=== PATIENT | male | born 1970 | race Caucasian/White ===

== ENCOUNTER 2018-09-25 17:46 | Emergency (ER) | payer MEDICARE, MEDICAID ==
[~2018-09-25] VITALS: Ht 180.3 cm; Wt 77.6 kg
[2018-09-25 18:28] LABS: BASOPHILS # (AUTO) 0.1 X10'3 (0-0.2); BASOPHILS % (AUTO) 1.6 % (0-1); EOSINOPHILS # (AUTO) 0.1 X10'3 (0-0.9); EOSINOPHILS % (AUTO) 1.3 % (0-6); HEMATOCRIT 43.2 % (42.0-52.0); HEMOGLOBIN 14.1 g/dl (14.0-17.9); LYMPHOCYTES # (AUTO) 1.1 X10'3 (1.1-4.8); MEAN CORPUSCULAR HEMOGLOBIN 29.4 PG (27.0-31.0); MEAN CORPUSCULAR HGB CONC 32.7 % (33.0-36.5); MEAN CORPUSCULAR VOLUME 89.7 FL (78-98); MEAN PLATELET VOLUME 7.5 FL (7.4-10.4); MONOCYTES # (AUTO) 0.7 X10'3 (0-0.9); NEUTROPHILS # (AUTO) 6.6 X10'3 (1.8-7.7); NEUTROPHILS % (AUTO) 76.1 % (42-75); PLATELET COUNT 328 X10'3 (140-440); RED BLOOD COUNT 4.82 X10'6 (4.70-6.10); WHITE BLOOD COUNT 8.6 X10'3 (4.5-11.0)
[2018-09-25 18:32] LABS: CLARITY,URINE CLEAR (Clear); COLOR,URINE YELLOW (Yellow); GLUCOSE, URINE NEGATIVE (Neg); KETONES,URINE NEGATIVE (Neg); LEUKOCYTE ESTERASE ,URINE NEGATIVE (Neg); NITRITES, URINE NEGATIVE (Neg); OCCULT BLOOD,URINE NEGATIVE (Neg); PROTEIN,URINE NEGATIVE (Neg); UROBILINOGEN,URINE 0.2 E.U/dL (0.2-1.0)
[2018-09-25 18:35] LABS: UA COLLECTION TYPE CLN CATCH MIDSTREAM
[2018-09-25 18:36] LABS: INR 0.9 INR; PROTHROMBIN TIME 9.4 SECONDS (9.0-12.0)
[2018-09-25 18:37] LABS: ALANINE AMINOTRANSFERASE 29 U/L (12-78); ALBUMIN 3.4 G/DL (3.4-5.0); ALBUMIN/GLOBULIN RATIO 0.9 (1.1-1.5); ALKALINE PHOSPHATASE 65 IU/L (46-116); ANION GAP 6 (8-16); ASPARTATE AMINO TRANSFERASE 17 U/L (10-37); BILIRUBIN,TOTAL 0.3 MG/DL (0.1-1.0); BLOOD UREA NITROGEN 14 MG/DL (7-18); BUN/CREATININE RATIO 14.1 (5.4-32.0); CHLORIDE 101 MMOL/L (99-107); CREATININE 0.99 MG/DL (0.60-1.10); GLUCOSE 94 MG/DL (70-104); LIPASE 90 U/L (73-393); POTASSIUM 4.2 MMOL/L (3.5-5.1); SODIUM 138 MMOL/L (135-145); TOTAL CARBON DIOXIDE 31.2 MMOL/L (24-32); TOTAL PROTEIN 7.3 G/DL (6.4-8.2); eGFR 81 ML/MIN
--- NOTE | 2018-09-25 19:12 | NUR ---
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 Pt began having blood in his stool 3 weeks ago and immediately began taking a predinisone taper perscription that had been perscribed by his PCP (in [facility]) 1 yr ago just prior to him moving to the [facility]. Pt reports only worsening symptoms. Pt has not yet established with a PCP in this area. He also reports a VENTURA increasing over the past few days and haivng pain to his right groin and inner thigh. Pt's and daughter at bedside. Pt awaiting ER MD.
[2018-09-25 19:16] VITALS: BP 119/75
[2018-09-25] MEDS ORDERED: METR-211 PO (20:31)
[2018-09-25] MEDS ORDERED: CIPR-230 PO (20:31)
[2018-09-25] MEDS ORDERED: PRED20TA PO (20:31)
== END 2018-09-25 20:40 | disposition home or self-care (01) ==
LOC: ER 17:47
DX: K50.90 Crohn's disease, unspecified, without complications (principal); Z88.5 Allergy status to narcotic agent; Z88.8 Allergy status to other drugs, medicaments and biological substances; Z79.2 Long term (current) use of antibiotics; Z79.899 Other long term (current) drug therapy
CPT/HCPCS: 36415; 80053; 81003; 83690; 85025; 85610; 99283

== ENCOUNTER 2019-01-09 10:31 | Inpatient (IN) | payer MEDICARE, MEDICAID ==
[~2019-01-09] VITALS: Ht 180.3 cm; Wt 75.0 kg
--- NOTE | 2019-01-09 13:58 | NUR ---
DR KING IN ROOM FOR HISTORY.
[2019-01-09 14:04] LABS: BASOPHILS # (AUTO) 0.1 X10'3 (0-0.2); BASOPHILS % (AUTO) 0.7 % (0-1); EOSINOPHILS # (AUTO) 0.2 X10'3 (0-0.9); HEMATOCRIT 47.8 % (42.0-52.0); LYMPHOCYTES # (AUTO) 2.6 X10'3 (1.1-4.8); LYMPHOCYTES % (AUTO) 21.5 % (21-51); MEAN CORPUSCULAR HEMOGLOBIN 29.3 PG (27.0-31.0); MEAN CORPUSCULAR HGB CONC 33.5 g/dL (33.0-36.5); MEAN CORPUSCULAR VOLUME 87.4 FL (78-98); MEAN PLATELET VOLUME 7.8 FL (7.4-10.4); MONOCYTES # (AUTO) 1.1 X10'3 (0-0.9); MONOCYTES % (AUTO) 9.4 % (2-12); NEUTROPHILS % (AUTO) 66.4 % (42-75); PLATELET COUNT 351 X10'3 (140-440); RED BLOOD COUNT 5.47 X10'6 (4.70-6.10); RED CELL DISTRIBUTION WIDTH 13.7 % (11.5-14.5); WHITE BLOOD COUNT 12.1 X10'3 (4.5-11.0)
[2019-01-09 14:06] LABS: CLARITY,URINE CLEAR (Clear); COLOR,URINE YELLOW (Yellow); GLUCOSE, URINE NEGATIVE (Neg); KETONES,URINE 15 mg/dl (Neg); LEUKOCYTE ESTERASE ,URINE NEGATIVE (Neg); NITRITES, URINE NEGATIVE (Neg); OCCULT BLOOD,URINE TRACE-INTACT (Neg); PROTEIN,URINE NEGATIVE (Neg); UA COLLECTION TYPE CLN CATCH MIDSTREAM; UROBILINOGEN,URINE 0.2 E.U/dL (0.2-1.0)
[2019-01-09 14:13] LABS: MUCUS STRANDS FEW /LPF (Neg); SQUAMOUS EPITHELIAL CELL,UR NONE SEEN /LPF (FEW)
[2019-01-09 14:14] LABS: ALANINE AMINOTRANSFERASE 15 U/L (12-78); ALBUMIN 4.2 G/DL (3.4-5.0); ALBUMIN/GLOBULIN RATIO 0.9 (1.1-1.5); ALKALINE PHOSPHATASE 67 IU/L (46-116); ANION GAP 7 (8-16); ASPARTATE AMINO TRANSFERASE 14 U/L (10-37); BILIRUBIN,TOTAL 0.4 MG/DL (0.1-1.0); BLOOD UREA NITROGEN 12 MG/DL (7-18); BUN/CREATININE RATIO 14.3 (5.4-32.0); CALCIUM 9.6 MG/DL (8.5-10.1); CHLORIDE 102 MMOL/L (99-107); CREATININE 0.84 MG/DL (0.60-1.10); GLUCOSE 83 MG/DL (70-104); PARTIAL THROMBOPLASTIN TIME 31 SECONDS (22-32); POTASSIUM 3.7 MMOL/L (3.5-5.1); SODIUM 140 MMOL/L (135-145); TOTAL CARBON DIOXIDE 30.7 MMOL/L (24-32); TOTAL PROTEIN 8.7 G/DL (6.4-8.2); eGFR > 90 ML/MIN
[2019-01-09 14:16] LABS: BACTERIA,URINE NONE SEEN /HPF (Neg); WBC,URINE 0-4 /HPF (0-4)
[2019-01-09] MEDS ORDERED: BALS750C PO (15:03)
[2019-01-09] MEDS ORDERED: LACT1CAP26 PO (15:36)
[2019-01-09] MEDS ORDERED: MULT1TAB74 PO (15:36)
[2019-01-09] MEDS ORDERED: magnesium Cl slow-release 64mg tablet PO PRN (15:45)
[2019-01-09] MEDS ORDERED: potassium Cl 20 mEq SR tablet PO PRN ×2 (15:45)
[2019-01-09] MEDS ORDERED: magnesium 4gm in 100ml NS 100 ML IV PRN (15:45)
[2019-01-09] MEDS ORDERED: magnesium 2GM in 50ml NS 50 ML IV PRN (15:45)
[2019-01-09] MEDS ORDERED: potassium Cl 40MEQ/NS 500ml 500 ML IV PRN ×2 (15:45)
[2019-01-09] MEDS ORDERED: ondansetron/PF 4mg/2ml inj IV PRN (15:45)
[2019-01-09] MEDS: hydrocortisone sod succ/PF 100mg/2ml inj. IV SCH ×2 (16:10→23:57)
[2019-01-09] MEDS: methylPREDNISolone sod succ 125mg/2ml vial IV SCH ×2 (16:10→23:57)
[2019-01-09] MEDS: normal saline 1000ml 1,000 ML IV SCH ×2 (16:10→18:03)
[2019-01-09] MEDS: HYDROmorphone inj. 0.5 MG/0.5 ML DISP.SYRIN IV PRN ×2 (18:01→23:58)
--- NOTE | 2019-01-10 02:22 | NUR ---
PT PLACED ON HOSPITAL BED.
--- NOTE | 2019-01-10 04:37 | NUR ---
pt sleeping , rr 16 and unlabored. awaiting ipa
--- NOTE | 2019-01-10 05:24 | NUR ---
pt up to br. he reports some blood in the stool and mucus. He reports every morning he has 'about 11 episodes of urgent bms' and after the first few bm's his stool is very bloody. This has been going on since august. current vss.
[2019-01-10] MEDS: HYDROmorphone inj. 0.5 MG/0.5 ML DISP.SYRIN IV PRN ×3 (05:28→19:01)
[2019-01-10 06:27] LABS: BASOPHILS % (AUTO) 0.3 % (0-1); EOSINOPHILS % (AUTO) 0 % (0-6); HEMATOCRIT 48.4 % (42.0-52.0); HEMOGLOBIN 15.9 g/dl (14.0-17.9); LYMPHOCYTES # (AUTO) 1.1 X10'3 (1.1-4.8); LYMPHOCYTES % (AUTO) 7.6 % (21-51); MEAN CORPUSCULAR HEMOGLOBIN 28.9 PG (27.0-31.0); MEAN CORPUSCULAR HGB CONC 32.8 g/dL (33.0-36.5); MEAN CORPUSCULAR VOLUME 88.1 FL (78-98); MEAN PLATELET VOLUME 7.7 FL (7.4-10.4); MONOCYTES # (AUTO) 0.1 X10'3 (0-0.9); MONOCYTES % (AUTO) 0.9 % (2-12); NEUTROPHILS # (AUTO) 12.7 X10'3 (1.8-7.7); NEUTROPHILS % (AUTO) 91.2 % (42-75); PLATELET COUNT 378 X10'3 (140-440); RED CELL DISTRIBUTION WIDTH 13.9 % (11.5-14.5); WHITE BLOOD COUNT 13.9 X10'3 (4.5-11.0)
[2019-01-10 06:38] LABS: ALBUMIN 3.6 G/DL (3.4-5.0); ANION GAP 11 (8-16); BLOOD UREA NITROGEN 15 MG/DL (7-18); CALCIUM 9.7 MG/DL (8.5-10.1); CHLORIDE 103 MMOL/L (99-107); CREATININE 0.79 MG/DL (0.60-1.10); GLUCOSE 136 MG/DL (70-104); MAGNESIUM 1.7 MG/DL (1.5-2.4); POTASSIUM 4.2 MMOL/L (3.5-5.1); SODIUM 140 MMOL/L (135-145); TOTAL CARBON DIOXIDE 26.4 MMOL/L (24-32); eGFR > 90 ML/MIN
[2019-01-10] MEDS: hydrocortisone sod succ/PF 100mg/2ml inj. IV SCH (07:56)
[2019-01-10] MEDS: methylPREDNISolone sod succ 125mg/2ml vial IV SCH ×3 (07:57→16:45)
[2019-01-10] MEDS: K and/or MAG REPLACEMENT MC SCH (08:00)
[2019-01-10 10:30] VITALS: BP 137/105
[2019-01-10] MEDS: normal saline 1000ml 1,000 ML IV SCH ×2 (12:56→23:14)
--- NOTE | 2019-01-10 14:58 | NUR ---
RN consult: RN called RD; pt requests Chron's diet ed since admit w/ flare-up. Pt/SO seen by RD for written/verbal low-residue diet ed w/ RD contact information provided. Pt reports he plans on starting a food journal; RD encouraged this and to contact RD if any further questions. LINN d/w RN; recommend low-residue diet once able to have solid meals per MD approval. Addendum: 01/10/19 at [address] Amended: Links added.
--- NOTE | 2019-01-10 18:00 | NUR ---
Patient in room [facility]. I have received report from Nanette GRIFFITH and had the opportunity to ask questions and assume patient care.
--- NOTE | 2019-01-10 18:15 | NUR ---
Received report from Nanette GRIFFITH with Gris RN pt is awake and alert on RA eating CL diet, NS running@100mL/hr, call light and items of freq use within reach.
[2019-01-10] MEDS ORDERED: normal saline 1000ml 1,000 ML IV SCH (18:55)
[2019-01-10 19:00] VITALS: BP 128/79
--- NOTE | 2019-01-10 19:02 | NUR ---
Problems reprioritized. Patient report given, questions answered & plan of care reviewed with Kay GRIFFITH and Gris GRIFFITH.
[2019-01-11] MEDS: metroNIDAZOLE-Flagyl 500mg/NS 100 ML IV SCH ×4 (00:10→23:36)
[2019-01-11 00:27] VITALS: BP 107/64
[2019-01-11 05:58] LABS: BASOPHILS # (AUTO) 0.1 X10'3 (0-0.2); BASOPHILS % (AUTO) 0.2 % (0-1); EOSINOPHILS % (AUTO) 0 % (0-6); HEMATOCRIT 42.9 % (42.0-52.0); HEMOGLOBIN 14.3 g/dl (14.0-17.9); LYMPHOCYTES # (AUTO) 1.2 X10'3 (1.1-4.8); LYMPHOCYTES % (AUTO) 4.6 % (21-51); MEAN CORPUSCULAR HEMOGLOBIN 29.2 PG (27.0-31.0); MEAN CORPUSCULAR HGB CONC 33.3 g/dL (33.0-36.5); MEAN CORPUSCULAR VOLUME 87.6 FL (78-98); MEAN PLATELET VOLUME 8.2 FL (7.4-10.4); MONOCYTES # (AUTO) 1.5 X10'3 (0-0.9); MONOCYTES % (AUTO) 5.6 % (2-12); NEUTROPHILS % (AUTO) 89.6 % (42-75); PLATELET COUNT 364 X10'3 (140-440); RED CELL DISTRIBUTION WIDTH 13.8 % (11.5-14.5)
[2019-01-11 06:01] LABS: ALBUMIN 3.3 G/DL (3.4-5.0); ANION GAP 8 (8-16); BLOOD UREA NITROGEN 15 MG/DL (7-18); BUN/CREATININE RATIO 18.5 (5.4-32.0); CALCIUM 8.9 MG/DL (8.5-10.1); CHLORIDE 107 MMOL/L (99-107); CREATININE 0.81 MG/DL (0.60-1.10); GLUCOSE 118 MG/DL (70-104); MAGNESIUM 1.8 MG/DL (1.5-2.4); POTASSIUM 3.9 MMOL/L (3.5-5.1); SODIUM 141 MMOL/L (135-145); TOTAL CARBON DIOXIDE 26.3 MMOL/L (24-32); eGFR > 90 ML/MIN
--- NOTE | 2019-01-11 06:05 | NUR ---
Gave report to Nanette GRIFFITH with Prudence RN pt is awake and alert on RA in no apparent distress, call light and items of freq use within reach.
[2019-01-11 06:12] LABS: WHITE BLOOD COUNT 26.8 X10'3 (4.5-11.0)
--- NOTE | 2019-01-11 06:19 | NUR ---
Problems reprioritized. Patient report given to NACHO Fitzpatrick and questions answered & plan of care reviewed with NACHO Brock.
--- NOTE | 2019-01-11 06:25 | NUR ---
Patient in room [facility]. I have received report from Kay GRIFFITH and Gris GRIFFITH and had the opportunity to ask questions and assume patient care.
--- NOTE | 2019-01-11 06:26 | NUR ---
Paged Dr. Wilder to report critical lab WBC of 26.8 today, patient had no fever.
[2019-01-11 07:00] VITALS: BP 115/79
[2019-01-11] MEDS: methylPREDNISolone sod succ 125mg/2ml vial IV SCH ×2 (07:22→20:02)
[2019-01-11] MEDS: K and/or MAG REPLACEMENT MC SCH (08:00)
--- NOTE | 2019-01-11 09:19 | NUR ---
Paged Dr. Angelo regarding patient's WBC of 26.8 this am, report of urinary frequency and right flank pain.
[2019-01-11 10:13] LABS: CLARITY,URINE CLEAR (Clear); COLOR,URINE YELLOW (Yellow); GLUCOSE, URINE NEGATIVE (Neg); KETONES,URINE NEGATIVE (Neg); LEUKOCYTE ESTERASE ,URINE NEGATIVE (Neg); NITRITES, URINE NEGATIVE (Neg); OCCULT BLOOD,URINE TRACE-INTACT (Neg); PROTEIN,URINE NEGATIVE (Neg); UROBILINOGEN,URINE 0.2 E.U/dL (0.2-1.0)
[2019-01-11 10:15] LABS: UA COLLECTION TYPE CLN CATCH MIDSTREAM
[2019-01-11 10:23] LABS: RBC,URINE 0-2 /HPF (0-2); WBC,URINE NONE SEEN /HPF (0-4)
[2019-01-11 10:24] LABS: BACTERIA,URINE NONE SEEN /HPF (Neg); MUCUS STRANDS NONE SEEN /LPF (Neg); SQUAMOUS EPITHELIAL CELL,UR NONE SEEN /LPF (FEW)
[2019-01-11 11:00] VITALS: BP 131/101
[2019-01-11] MEDS ORDERED: HYDROcodone/acetaminophen 5mg/325mg tablet PO PRN (11:25)
[2019-01-11] MEDS ORDERED: pantoprazole 40 MG vial IV ONE (11:25)
[2019-01-11] MEDS: normal saline 1000ml 1,000 ML IV SCH ×3 (13:45→23:36)
[2019-01-11] MEDS: HYDROcodone/acetaminophen 10/325mg tab PO PRN ×2 (16:37→21:00)
--- NOTE | 2019-01-11 18:40 | NUR ---
Received report from Nanette GRIFFITH pt is awake and alert visitors at bedside, in no apparent distress, call light and items of freq use within reach.
--- NOTE | 2019-01-11 18:45 | NUR ---
Problems reprioritized. Patient report given, questions answered & plan of care reviewed with Kay GRIFFITH and Gris GRIFFITH.
[2019-01-11 19:00] VITALS: BP 133/80
--- NOTE | 2019-01-11 19:17 | NUR ---
Patient in room [facility]. I have received report from NACHO Fitzpatrick and had the opportunity to ask questions and assume patient care with NACHO Jiménez.
[2019-01-11] MEDS ORDERED: methylPREDNISolone sod succ 125mg/2ml vial IV SCH (20:00)
[2019-01-12 00:05] VITALS: BP 102/54
[2019-01-12 04:03] LABS: BASOPHILS % (AUTO) 0.1 % (0-1); EOSINOPHILS % (AUTO) 0.1 % (0-6); HEMATOCRIT 42.3 % (42.0-52.0); LYMPHOCYTES # (AUTO) 1.3 X10'3 (1.1-4.8); LYMPHOCYTES % (AUTO) 6.8 % (21-51); MEAN CORPUSCULAR HEMOGLOBIN 28.9 PG (27.0-31.0); MEAN CORPUSCULAR VOLUME 87.5 FL (78-98); MEAN PLATELET VOLUME 7.9 FL (7.4-10.4); MONOCYTES # (AUTO) 0.8 X10'3 (0-0.9); MONOCYTES % (AUTO) 4.4 % (2-12); NEUTROPHILS # (AUTO) 16.5 X10'3 (1.8-7.7); NEUTROPHILS % (AUTO) 88.6 % (42-75); PLATELET COUNT 359 X10'3 (140-440); RED BLOOD COUNT 4.83 X10'6 (4.70-6.10); RED CELL DISTRIBUTION WIDTH 13.6 % (11.5-14.5); WHITE BLOOD COUNT 18.7 X10'3 (4.5-11.0)
[2019-01-12 04:16] LABS: ALBUMIN 3.1 G/DL (3.4-5.0); ANION GAP 5 (8-16); BLOOD UREA NITROGEN 14 MG/DL (7-18); BUN/CREATININE RATIO 17.7 (5.4-32.0); CALCIUM 8.9 MG/DL (8.5-10.1); CHLORIDE 107 MMOL/L (99-107); CREATININE 0.79 MG/DL (0.60-1.10); GLUCOSE 123 MG/DL (70-104); MAGNESIUM 1.8 MG/DL (1.5-2.4); SODIUM 141 MMOL/L (135-145); TOTAL CARBON DIOXIDE 28.9 MMOL/L (24-32); eGFR > 90 ML/MIN
--- NOTE | 2019-01-12 06:24 | NUR ---
Patient in room [facility]. I have received report from Kay GRIFFITH and had the opportunity to ask questions and assume patient care.
--- NOTE | 2019-01-12 06:26 | NUR ---
Problems reprioritized. Patient report given, questions answered & plan of care reviewed with Nanette RN with prudence RN.
--- NOTE | 2019-01-12 06:26 | NUR ---
Report given to Nanette GRIFFITH with Jessy GRIFFITH. Patient slept well. See worklist for further orders.
[2019-01-12 07:00] VITALS: BP 119/74
[2019-01-12] MEDS: K and/or MAG REPLACEMENT MC SCH (08:00)
[2019-01-12] MEDS: metroNIDAZOLE-Flagyl 500mg/NS 100 ML IV SCH ×2 (08:02→15:41)
[2019-01-12] MEDS: methylPREDNISolone sod succ 125mg/2ml vial IV SCH (08:02)
[2019-01-12] MEDS: pantoprazole 40mg Tablet.DR PO SCH (08:03)
[2019-01-12 11:00] VITALS: BP 125/80
[2019-01-12] MEDS: normal saline 1000ml 1,000 ML IV SCH (15:42)
--- NOTE | 2019-01-12 18:38 | NUR ---
Received report from Nanette GRIFFITH with Gris RN pt is awake and alert eating a [facility] soft diet, on RA in no apparent distress, call light and items of freq use within reach.
--- NOTE | 2019-01-12 18:41 | NUR ---
Report recieved from Nanette GRIFFITH and reviewed plan of care with Jessy GRIFFITH. Patient reports feeling better and he is eating dinner. H
--- NOTE | 2019-01-12 18:44 | NUR ---
Problems reprioritized. Patient report given, questions answered & plan of care reviewed with Kay GRIFFITH and Gris GRIFFITH.
[2019-01-12 19:00] VITALS: BP 116/72
[2019-01-13] VITALS: BP 100/49
[2019-01-13] MEDS: metroNIDAZOLE-Flagyl 500mg/NS 100 ML IV SCH ×2 (00:05→08:38)
[2019-01-13 04:34] LABS: BASOPHILS % (AUTO) 0.1 % (0-1); EOSINOPHILS % (AUTO) 0.3 % (0-6); HEMATOCRIT 40.5 % (42.0-52.0); HEMOGLOBIN 13.4 g/dl (14.0-17.9); LYMPHOCYTES # (AUTO) 3.6 X10'3 (1.1-4.8); LYMPHOCYTES % (AUTO) 29.4 % (21-51); MEAN CORPUSCULAR HEMOGLOBIN 29.2 PG (27.0-31.0); MEAN CORPUSCULAR HGB CONC 33.2 g/dL (33.0-36.5); MEAN CORPUSCULAR VOLUME 88.1 FL (78-98); MEAN PLATELET VOLUME 8.1 FL (7.4-10.4); MONOCYTES # (AUTO) 1.5 X10'3 (0-0.9); MONOCYTES % (AUTO) 12.5 % (2-12); NEUTROPHILS # (AUTO) 7.1 X10'3 (1.8-7.7); NEUTROPHILS % (AUTO) 57.7 % (42-75); PLATELET COUNT 312 X10'3 (140-440); RED CELL DISTRIBUTION WIDTH 13.8 % (11.5-14.5); WHITE BLOOD COUNT 12.4 X10'3 (4.5-11.0)
[2019-01-13 04:49] LABS: ALBUMIN 2.9 G/DL (3.4-5.0); ANION GAP 3 (8-16); BLOOD UREA NITROGEN 18 MG/DL (7-18); BUN/CREATININE RATIO 20.9 (5.4-32.0); CALCIUM 8.5 MG/DL (8.5-10.1); CHLORIDE 106 MMOL/L (99-107); CREATININE 0.86 MG/DL (0.60-1.10); GLUCOSE 97 MG/DL (70-104); MAGNESIUM 1.7 MG/DL (1.5-2.4); POTASSIUM 3.5 MMOL/L (3.5-5.1); SODIUM 141 MMOL/L (135-145); TOTAL CARBON DIOXIDE 31.8 MMOL/L (24-32); eGFR > 90 ML/MIN
[2019-01-13] MEDS: normal saline 1000ml 1,000 ML IV SCH (05:16)
--- NOTE | 2019-01-13 06:23 | NUR ---
Problems reprioritized. Patient report given with Jessy GRIFFITH, questions answered & plan of care reviewed with Cielo GRIFFITH . Patient is still resting and denied having pain.
--- NOTE | 2019-01-13 06:55 | NUR ---
Patient in room [facility]. I have received report from NACHO Jiménez and had the opportunity to ask questions and assume patient care.
[2019-01-13 07:35] VITALS: BP 124/76
[2019-01-13] MEDS ORDERED: methylPREDNISolone sod succ 125mg/2ml vial IV SCH (08:00)
[2019-01-13] MEDS: pantoprazole 40mg Tablet.DR PO SCH (08:38)
[2019-01-13] MEDS ORDERED: PRED10TA23 PO (11:53)
[2019-01-13] MEDS ORDERED: METR-159 PO (11:53)
[2019-01-13] MEDS ORDERED: CIPR-230 PO (11:53)
[2019-01-13 12:00] VITALS: BP 135/90
--- NOTE | 2019-01-13 13:30 | NUR ---
Pt discharged to home with all belongings in private vehicle. Discharge instructions and medications reviewed. New prescriptions called to [facility]. IV DC'd, cannula intact. Pt provided with education regarding Crohn's Disease and instructed to return to the ED if symptoms return, as well as to follow up with Dr Jo in 2-3 days. Pt escorted to front lobby by PCT.
== END 2019-01-13 13:08 | disposition home or self-care (01) | DRG 387 ==
LOC: ER 10:33 → SUR 3N 01-10 09:15 → CMPBEDREQ 01-10 13:07 → SUR 3N 01-10 23:56
PROVIDERS: ADMIT Internal Medicine; ATTEND Internal Medicine
DX: K50.90 Crohn's disease, unspecified, without complications (principal); D72.829 Elevated white blood cell count, unspecified; Z88.5 Allergy status to narcotic agent; Z88.8 Allergy status to other drugs, medicaments and biological substances; Z87.442 Personal history of urinary calculi
CPT/HCPCS: 36415; 80048; 80053; 81001; 83735; 84145; 85025; 85610; 85730; 86885; 86900; 86901; 87070; 96374; 96375; 96376; 99285; C9113; G0378; J1170; J1720; J2930; J3490; J7030

== ENCOUNTER 2020-06-29 21:20 | Emergency (ER) | payer MEDICARE, MEDICAID ==
[~2020-06-29] VITALS: Ht 180.3 cm; Wt 79.5 kg
[~2020-06-29 21:20] MED LIST: BALS750C PO; LACT1CAP26 PO; MULT-620 PO
[2020-06-29 21:28] VITALS: BP 137/87
[2020-06-29] MEDS ORDERED: ALBU8HFA PO (22:15)
[2020-06-29] MEDS ORDERED: ONDA4TAB6 PO (22:15)
== END 2020-06-29 23:24 | disposition home or self-care (01) ==
LOC: ER 21:21
DX: J06.9 Acute upper respiratory infection, unspecified (principal); Z20.828 Contact with and (suspected) exposure to other viral communicable diseases; Z88.6 Allergy status to analgesic agent; Z88.8 Allergy status to other drugs, medicaments and biological substances; Z79.899 Other long term (current) drug therapy
CPT/HCPCS: 36415; 87635; 99283

== ENCOUNTER 2020-10-24 10:42 | Emergency (ER) | payer MEDICARE, MEDICAID ==
[~2020-10-24] VITALS: Ht 180.3 cm; Wt 81.8 kg
[~2020-10-24 10:42] MED LIST changes: +ONDA4TAB6 PO
[2020-10-24] MEDS ORDERED: ketorolac trometh. 30mg/ml inj. IM ONE ×2 (11:30→12:15)
[2020-10-24] MEDS ORDERED: cyclobenzaprine 10mg tablet PO ONE (11:30)
[2020-10-24] MEDS ORDERED: HYDROcodone/acetaminophen 5mg/325mg tablet PO ONE (12:15)
[2020-10-24 12:19] VITALS: BP 139/102
[2020-10-24] MEDS ORDERED: HYDR-3965 PO (13:21)
== END 2020-10-24 13:32 | disposition home or self-care (01) ==
LOC: ER 10:43
DX: M54.5 Low back pain (principal); R05 Cough; J44.9 Chronic obstructive pulmonary disease, unspecified; Z87.442 Personal history of urinary calculi; Z88.6 Allergy status to analgesic agent; Z88.8 Allergy status to other drugs, medicaments and biological substances; Z79.899 Other long term (current) drug therapy
CPT/HCPCS: 96372; 99284; J1885

== ENCOUNTER 2021-07-16 09:09 | Emergency (ER) | payer MEDICARE, MEDICAID ==
[~2021-07-16] VITALS: Ht 180.3 cm; Wt 79.1 kg
[2021-07-16] MEDS ORDERED: dexamethasone sod phosphate 10mg/ml inj IV STA (09:29)
[2021-07-16] MEDS ORDERED: normal saline 1000ML IV soln IV ONE (09:30)
[2021-07-16] MEDS ORDERED: ondansetron 4mg rapidly disintigrating tab PO ONE (09:30)
[2021-07-16 10:30] LABS: WHITE BLOOD COUNT 17.5 X10'3 (4.5-11.0)
[2021-07-16 10:32] LABS: HEMATOCRIT 54.3 % (42.0-52.0); MEAN CORPUSCULAR HEMOGLOBIN 30.7 PG (27.0-31.0); MEAN CORPUSCULAR HGB CONC 33.6 g/dL (33.0-36.5); MEAN CORPUSCULAR VOLUME 91.4 FL (78-98); PLATELET COUNT 475 X10'3 (140-440); RED BLOOD COUNT 5.94 X10'6 (4.70-6.10); RED CELL DISTRIBUTION WIDTH 15.5 % (11.5-14.5)
[2021-07-16 10:37] LABS: HEMOGLOBIN 18.2 g/dl (14.0-17.9)
[2021-07-16 10:47] LABS: ALANINE AMINOTRANSFERASE 62 U/L (12-78); ALBUMIN 4.5 G/DL (3.4-5.0); ALBUMIN/GLOBULIN RATIO 0.9 (1.1-1.5); ALKALINE PHOSPHATASE 115 IU/L (46-116); ANION GAP 15 (8-16); ASPARTATE AMINO TRANSFERASE 34 U/L (10-37); BLOOD UREA NITROGEN 16 MG/DL (7-18); BUN/CREATININE RATIO 13.6 (5.4-32.0); CHLORIDE 102 MMOL/L (99-107); CREATININE 1.18 MG/DL (0.60-1.10); GLUCOSE 135 MG/DL (70-104); POTASSIUM 3.7 MMOL/L (3.5-5.1); SODIUM 143 MMOL/L (135-145); TOTAL CARBON DIOXIDE 26.5 MMOL/L (24-32); TOTAL PROTEIN 9.4 G/DL (6.4-8.2); eGFR 66 ML/MIN
[2021-07-16 10:56] LABS: ANISOCYTOSIS FEW; PLATELET ESTIMATE INCREASED; TOTAL CELLS COUNTED 100; TOXIC VACUOLATION 1+
--- NOTE | 2021-07-16 11:36 | NUR ---
received patient in bed 4.
[2021-07-16] MEDS ORDERED: iohexol 300mg/ml 100ml inj. ONE (12:08)
--- NOTE | 2021-07-16 12:44 | NUR ---
pt to ct.
[2021-07-16] MEDS ORDERED: PRED10TA23 PO (13:25)
[2021-07-16 14:07] VITALS: BP 115/79
== END 2021-07-16 14:12 | disposition home or self-care (01) ==
LOC: ER 09:09
DX: K50.90 Crohn's disease, unspecified, without complications (principal); R53.1 Weakness; R42 Dizziness and giddiness; R11.2 Nausea with vomiting, unspecified; R19.7 Diarrhea, unspecified; J44.9 Chronic obstructive pulmonary disease, unspecified; Z87.442 Personal history of urinary calculi; Z88.6 Allergy status to analgesic agent; Z88.8 Allergy status to other drugs, medicaments and biological substances; Z79.899 Other long term (current) drug therapy
CPT/HCPCS: 74177; 80053; 84145; 85007; 85025; 86140; 96361; 96374; 99285; J1100; J7030; Q9967

== ENCOUNTER 2022-04-23 07:19 | Emergency (ER) | payer MEDICARE, MEDICAID ==
[~2022-04-23] VITALS: Ht 180.3 cm; Wt 90.5 kg
[2022-04-23 08:36] LABS: BASOPHILS # (AUTO) 0.1 X10'3 (0-0.2); BASOPHILS % (AUTO) 0.7 % (0-1); EOSINOPHILS # (AUTO) 0.1 X10'3 (0-0.9); EOSINOPHILS % (AUTO) 0.9 % (0-6); HEMATOCRIT 45.4 % (42.0-52.0); HEMOGLOBIN 15.6 g/dl (14.0-17.9); LYMPHOCYTES # (AUTO) 1.6 X10'3 (1.1-4.8); MEAN CORPUSCULAR HGB CONC 34.4 g/dL (33.0-36.5); MEAN PLATELET VOLUME 7.4 FL (7.4-10.4); MONOCYTES # (AUTO) 0.6 X10'3 (0-0.9); MONOCYTES % (AUTO) 6.6 % (2-12); NEUTROPHILS # (AUTO) 6.4 X10'3 (1.8-7.7); NEUTROPHILS % (AUTO) 73.8 % (42-75); PLATELET COUNT 378 X10'3 (140-440); RED BLOOD COUNT 4.73 X10'6 (4.70-6.10); RED CELL DISTRIBUTION WIDTH 17.9 % (11.5-14.5); WHITE BLOOD COUNT 8.7 X10'3 (4.5-11.0)
[2022-04-23 08:49] LABS: ALANINE AMINOTRANSFERASE 37 U/L (12-78); ALBUMIN 4.1 G/DL (3.4-5.0); ALBUMIN/GLOBULIN RATIO 1.1 (1.1-1.5); ALKALINE PHOSPHATASE 50 IU/L (46-116); ANION GAP 8 (8-16); ASPARTATE AMINO TRANSFERASE 22 U/L (10-37); BILIRUBIN,TOTAL 0.9 MG/DL (0.1-1.0); BLOOD UREA NITROGEN 14 MG/DL (7-18); BUN/CREATININE RATIO 15.6 (5.4-32.0); CALCIUM 9.4 MG/DL (8.5-10.1); CHLORIDE 102 MMOL/L (99-107); GLUCOSE 102 MG/DL (70-104); LIPASE 131 U/L (73-393); SODIUM 139 MMOL/L (135-145); TOTAL CARBON DIOXIDE 28.9 MMOL/L (24-32); eGFR 90 ML/MIN
[2022-04-23 09:28] LABS: CLARITY,URINE SLIGHTLY CLOUDY (Clear); COLOR,URINE YELLOW (Yellow); GLUCOSE, URINE NEGATIVE (Neg); KETONES,URINE TRACE mg/dl (Neg); LEUKOCYTE ESTERASE ,URINE NEGATIVE (Neg); NITRITES, URINE NEGATIVE (Neg); OCCULT BLOOD,URINE MODERATE (Neg); PROTEIN,URINE NEGATIVE (Neg); UROBILINOGEN,URINE 0.2 E.U/dL (0.2-1.0)
[2022-04-23 09:29] LABS: UA COLLECTION TYPE CLN CATCH MIDSTREAM
[2022-04-23 09:35] LABS: MUCUS STRANDS MANY /LPF (Neg); SQUAMOUS EPITHELIAL CELL,UR NONE SEEN /LPF (FEW)
[2022-04-23 09:37] LABS: BACTERIA,URINE FEW /HPF (Neg); WBC,URINE 0-4 /HPF (0-4)
[2022-04-23] MEDS ORDERED: diphenhydrAMINE 50 mg/ml inj IV ONE (10:55)
[2022-04-23] MEDS ORDERED: metoclopramide 5 mg/ml inj IV ONE (10:55)
[2022-04-23] MEDS ORDERED: normal saline 1000ml 1,000 ML IV ONE (10:55)
[2022-04-23] MEDS ORDERED: morphine 2 MG/ML inj. syringe IV ONE (11:00)
[2022-04-23] MEDS ORDERED: acetaminophen 325mg tablet PO ONE (11:00)
--- NOTE | 2022-04-23 12:24 | NUR ---
Pt reports feeling better after pain medications.
[2022-04-23] MEDS ORDERED: METO5TAB85 PO (13:07)
[2022-04-23 15:49] VITALS: BP 126/81
== END 2022-04-23 15:56 | disposition home or self-care (01) ==
LOC: ER 07:20
DX: K52.9 Noninfective gastroenteritis and colitis, unspecified (principal); Z20.822 Contact with and (suspected) exposure to COVID-19; R10.9 Unspecified abdominal pain; R11.2 Nausea with vomiting, unspecified; R51.9 Headache, unspecified; J44.9 Chronic obstructive pulmonary disease, unspecified; Z87.442 Personal history of urinary calculi; Z88.6 Allergy status to analgesic agent; Z79.899 Other long term (current) drug therapy; Z88.8 Allergy status to other drugs, medicaments and biological substances
CPT/HCPCS: 36415; 74176; 80053; 81001; 83690; 85025; 87502; 87503; 87635; 96361; 96374; 96375; 99284; C9803; J1200; J2270; J2765; J7030

== ENCOUNTER 2022-06-04 08:08 | Emergency (ER) | payer MEDICARE, MEDICAID ==
[~2022-06-04] VITALS: Ht 180.3 cm; Wt 93.5 kg
[~2022-06-04 08:08] MED LIST changes: +METO5TAB85 PO
[2022-06-04 09:27] VITALS: BP 162/93
[2022-06-04] MEDS ORDERED: HYDROcodone/acetaminophen 10/325mg tab PO STA (09:31)
== END 2022-06-04 11:27 | disposition home or self-care (01) ==
LOC: ER 08:08
DX: M25.531 Pain in right wrist (principal); J44.9 Chronic obstructive pulmonary disease, unspecified; Z87.448 Personal history of other diseases of urinary system; Z88.6 Allergy status to analgesic agent; Z88.8 Allergy status to other drugs, medicaments and biological substances; Z79.899 Other long term (current) drug therapy
CPT/HCPCS: 29125; 73110; 99284; L3908

== ENCOUNTER 2022-06-10 08:44 | Emergency (ER) | payer MEDICARE, MEDICAID ==
[~2022-06-10] VITALS: Ht 180.3 cm; Wt 88.6 kg
[2022-06-10 09:42] LABS: BASOPHILS % (AUTO) 0.5 % (0-1); EOSINOPHILS % (AUTO) 0.3 % (0-6); HEMATOCRIT 47.3 % (42.0-52.0); HEMOGLOBIN 16.1 g/dl (14.0-17.9); LYMPHOCYTES # (AUTO) 0.6 X10'3 (1.1-4.8); LYMPHOCYTES % (AUTO) 9.6 % (21-51); MEAN CORPUSCULAR HEMOGLOBIN 32.8 PG (27.0-31.0); MEAN CORPUSCULAR HGB CONC 34.1 g/dL (33.0-36.5); MEAN CORPUSCULAR VOLUME 96.3 FL (78-98); MEAN PLATELET VOLUME 7.5 FL (7.4-10.4); MONOCYTES # (AUTO) 1.1 X10'3 (0-0.9); NEUTROPHILS # (AUTO) 4.2 X10'3 (1.8-7.7); NEUTROPHILS % (AUTO) 70.6 % (42-75); PLATELET COUNT 275 X10'3 (140-440); RED BLOOD COUNT 4.92 X10'6 (4.70-6.10); RED CELL DISTRIBUTION WIDTH 14.6 % (11.5-14.5); WHITE BLOOD COUNT 5.9 X10'3 (4.5-11.0)
[2022-06-10 09:55] LABS: ALANINE AMINOTRANSFERASE 44 U/L (12-78); ALBUMIN 4.1 G/DL (3.4-5.0); ALKALINE PHOSPHATASE 49 IU/L (46-116); ANION GAP 7 (8-16); ASPARTATE AMINO TRANSFERASE 32 U/L (10-37); BILIRUBIN,TOTAL 0.4 MG/DL (0.1-1.0); BLOOD UREA NITROGEN 11 MG/DL (7-18); BUN/CREATININE RATIO 10.5 (5.4-32.0); CALCIUM 9.6 MG/DL (8.5-10.1); CHLORIDE 100 MMOL/L (99-107); CREATININE 1.05 MG/DL (0.60-1.10); GLUCOSE 97 MG/DL (70-104); SODIUM 138 MMOL/L (135-145); TOTAL CARBON DIOXIDE 30.6 MMOL/L (24-32); TOTAL PROTEIN 8.1 G/DL (6.4-8.2); eGFR 75 ML/MIN
[2022-06-10 09:56] LABS: CLARITY,URINE CLEAR (Clear); GLUCOSE, URINE NEGATIVE (Neg); KETONES,URINE NEGATIVE (Neg); LEUKOCYTE ESTERASE ,URINE NEGATIVE (Neg); NITRITES, URINE NEGATIVE (Neg); OCCULT BLOOD,URINE MODERATE (Neg); PH,URINE 6.5 (4.8-8.0); PROTEIN,URINE NEGATIVE (Neg); UROBILINOGEN,URINE 0.2 E.U/dL (0.2-1.0)
[2022-06-10 09:57] LABS: COLOR,URINE STRAW (Yellow); UA COLLECTION TYPE CLN CATCH MIDSTREAM
[2022-06-10 10:08] LABS: BACTERIA,URINE NONE SEEN /HPF (Neg); MUCUS STRANDS NONE SEEN /LPF (Neg); SQUAMOUS EPITHELIAL CELL,UR NONE SEEN /LPF (FEW); WBC,URINE NONE SEEN /HPF (0-4)
[2022-06-10] MEDS ORDERED: normal saline 1000ML IV soln IVB ONE (10:45)
--- NOTE | 2022-06-10 10:56 | NUR ---
PT C/O ANXITEY AND FLANK PAIN ALONG WITH NAUSEA ,VERBAL ORDER TO GIVE ATIVIAN 1 MG PO ONCE ,MORPHINE 4 MG IV ONCE ,ZOFRAN 4 MG IV ONCE.WILL FOLLOW THE ORDERS.
[2022-06-10] MEDS ORDERED: ondansetron/PF 4mg/2ml inj IV ONE (11:00)
[2022-06-10] MEDS ORDERED: LORazepam 1 MG tablet PO ONE (11:00)
[2022-06-10] MEDS ORDERED: morphine 4 MG/ML inj SYRINge IV ONE (11:00)
[2022-06-10] MEDS ORDERED: HYDR-3717 PO (12:48)
[2022-06-10 13:28] VITALS: BP 130/81
== END 2022-06-10 13:34 | disposition home or self-care (01) ==
LOC: ER 08:45
DX: R10.84 Generalized abdominal pain (principal); F41.9 Anxiety disorder, unspecified; R35.0 Frequency of micturition; J44.9 Chronic obstructive pulmonary disease, unspecified; Z87.448 Personal history of other diseases of urinary system; Z88.6 Allergy status to analgesic agent; Z79.899 Other long term (current) drug therapy; Z88.8 Allergy status to other drugs, medicaments and biological substances
CPT/HCPCS: 74176; 80053; 81001; 85025; 96361; 96374; 96375; 99284; J2270; J2405; J7030

== ENCOUNTER 2022-11-04 16:31 | Emergency (ER) | payer MEDICARE, MEDICAID | END 2022-11-04 18:58 | disposition left against medical advice (07) | LOC: ER 16:32 | DX: N50.819 Testicular pain, unspecified (principal); Z53.21 Procedure and treatment not carried out due to patient leaving prior to being seen by health care provider ==

== ENCOUNTER 2024-11-18 08:12 | Emergency (ER) | payer MEDICARE, MEDICAID ==
[~2024-11-18] VITALS: Ht 180.3 cm; Wt 76.4 kg
[2024-11-18 08:21] VITALS: TEMP 97.6
[2024-11-18 09:52] LABS: BASOPHILS % (AUTO) 0.4 % (0-1); EOSINOPHILS % (AUTO) 0.4 % (0-6); HEMATOCRIT 50.7 % (42.0-52.0); HEMOGLOBIN 16.8 g/dl (14.0-17.9); LYMPHOCYTES # (AUTO) 1.1 X10'3 (1.1-4.8); LYMPHOCYTES % (AUTO) 12.6 % (21-51); MEAN CORPUSCULAR HEMOGLOBIN 29.9 PG (27.0-31.0); MEAN CORPUSCULAR HGB CONC 33.2 g/dL (33.0-36.5); MEAN CORPUSCULAR VOLUME 90.2 FL (78-98); MEAN PLATELET VOLUME 7.5 FL (7.4-10.4); MONOCYTES # (AUTO) 1.1 X10'3 (0-0.9); MONOCYTES % (AUTO) 12.4 % (2-12); NEUTROPHILS # (AUTO) 6.6 X10'3 (1.8-7.7); NEUTROPHILS % (AUTO) 74.2 % (42-75); PLATELET COUNT 318 X10'3 (140-440); RED BLOOD COUNT 5.62 X10'6 (4.70-6.10); RED CELL DISTRIBUTION WIDTH 14.6 % (11.5-14.5); WHITE BLOOD COUNT 8.8 X10'3 (4.5-11.0)
[2024-11-18 10:04] LABS: APTT 28 SECONDS (22-32); PROTHROMBIN TIME 10.6 SECONDS (9.0-12.0)
[2024-11-18 10:07] LABS: ALANINE AMINOTRANSFERASE 21 U/L (12-78); ALKALINE PHOSPHATASE 62 IU/L (46-116); ANION GAP 7 (8-16); ASPARTATE AMINO TRANSFERASE 14 U/L (10-37); BILIRUBIN,TOTAL 0.6 MG/DL (0.1-1.0); BLOOD UREA NITROGEN 20 MG/DL (7-18); BUN/CREATININE RATIO 24.1 (10.0-20.0); CALCIUM 9.1 MG/DL (8.5-10.1); CHLORIDE 102 MMOL/L (99-107); CREATININE 0.83 MG/DL (0.60-1.10); GLUCOSE 110 MG/DL (70-104); LIPASE 172 U/L (16-77); POTASSIUM 4.1 MMOL/L (3.5-5.1); SODIUM 140 MMOL/L (135-145); TOTAL CARBON DIOXIDE 31.5 MMOL/L (24-32); TOTAL PROTEIN 8.1 G/DL (6.4-8.2); eCRCL 111 ML/MIN; eGFR > 90 ML/MIN
[2024-11-18] MEDS ORDERED: HYDR-3972 PO (11:27)
[2024-11-18] MEDS: ketorolac trometh 30MG/ML vial 30 MG/ML VIAL IM ONE (11:49)
[2024-11-18] MEDS: dicyclomine 10 MG capsule PO ONE (11:49)
[2024-11-18 11:57] VITALS: BP 122/94; PULSE 72; RESP 14; O2SAT 100
== END 2024-11-18 11:56 | disposition home or self-care (01) ==
LOC: ER 08:13
DX: N20.0 Calculus of kidney (principal); J44.9 Chronic obstructive pulmonary disease, unspecified; Z87.442 Personal history of urinary calculi; Z88.6 Allergy status to analgesic agent; Z88.8 Allergy status to other drugs, medicaments and biological substances
CPT/HCPCS: 36415; 74176; 80053; 83690; 85025; 85610; 85730; 96372; 99285; J1885

== ENCOUNTER 2025-02-13 09:24 | Emergency (ER) | payer MEDICARE, MEDICAID ==
[~2025-02-13] VITALS: Ht 180.3 cm; Wt 71.6 kg
[2025-02-13 09:27] VITALS: TEMP 98.6; O2SAT 98
[2025-02-13] MEDS: methylPREDNISolone sod succ 125mg/2ml vial IV ONE (10:05)
[2025-02-13 10:12] LABS: BASOPHILS # (AUTO) 0.1 X10'3 (0-0.2); BASOPHILS % (AUTO) 0.6 % (0-1); EOSINOPHILS # (AUTO) 0.1 X10'3 (0-0.9); EOSINOPHILS % (AUTO) 1.3 % (0-6); HEMATOCRIT 44.7 % (42.0-52.0); HEMOGLOBIN 14.9 g/dl (14.0-17.9); LYMPHOCYTES # (AUTO) 1.9 X10'3 (1.1-4.8); LYMPHOCYTES % (AUTO) 17.8 % (21-51); MEAN CORPUSCULAR HEMOGLOBIN 29.4 PG (27.0-31.0); MEAN CORPUSCULAR HGB CONC 33.4 g/dL (33.0-36.5); MEAN PLATELET VOLUME 7.4 FL (7.4-10.4); MONOCYTES # (AUTO) 0.7 X10'3 (0-0.9); MONOCYTES % (AUTO) 6.8 % (2-12); NEUTROPHILS # (AUTO) 7.8 X10'3 (1.8-7.7); NEUTROPHILS % (AUTO) 73.5 % (42-75); PLATELET COUNT 380 X10'3 (140-440); RED BLOOD COUNT 5.08 X10'6 (4.70-6.10); RED CELL DISTRIBUTION WIDTH 14.2 % (11.5-14.5); WHITE BLOOD COUNT 10.5 X10'3 (4.5-11.0)
[2025-02-13 10:25] LABS: BILIRUBIN,TOTAL 0.4 MG/DL (0.1-1.0); BLOOD UREA NITROGEN 12 MG/DL (7-18); BUN/CREATININE RATIO 13.6 (10.0-20.0); CHLORIDE 105 MMOL/L (99-107); CREATININE 0.88 MG/DL (0.60-1.10); GLUCOSE 124 MG/DL (70-104); TOTAL CARBON DIOXIDE 29.8 MMOL/L (24-32); TOTAL PROTEIN 7.5 G/DL (6.4-8.2); eCRCL 99 ML/MIN; eGFR > 90 ML/MIN
[2025-02-13 10:26] LABS: ALANINE AMINOTRANSFERASE 19 U/L (12-78); ALBUMIN 3.7 G/DL (3.4-5.0); ALKALINE PHOSPHATASE 68 IU/L (46-116); ASPARTATE AMINO TRANSFERASE 23 U/L (10-37); LIPASE 20 U/L (16-77)
[2025-02-13 10:28] LABS: ANION GAP 6 (8-16); POTASSIUM 3.8 MMOL/L (3.5-5.1); SODIUM 141 MMOL/L (135-145)
[2025-02-13 10:34] VITALS: BP 133/82; PULSE 112; RESP 22
--- NOTE | 2025-02-13 10:38 | Physician Documentation ---
History of Present Illness ~ Chief Complaint: Bloody Stools Stated Complaint: RECTAL BLEEDING Time Seen by MD: 09:26 Primary Medical Doctor: [facility] HPI 54-year-old male history of Crohn's disease presenting for 1 week of abdominal discomfort and increasingly bloody stools. He has had multiple Crohn's flares in his feels similar to prior. Feels that his symptoms are much more mild and prior hospitalizations. He has tried reaching onto his GI physician for prednisone taper however they are not available in our and vacation. He is requesting prednisone taper Medication Reconciliation Allergies: Coded Allergies: ibuprofen (Unverified Allergy, Unknown, BLEEDING AND VOMITTING, 11/18/24) mesalamine (Unverified Allergy, Unknown, BLEEDING, 11/18/24) Scheduled Balsalazide Disodium (Balsalazide Disodium), 3 CAP PO TID, (Reported) Lactobacillus Rhamnosus (Culturelle), 1 CAP PO BID, (Reported) Multivitamins (Multivitamins), 1 TAB PO DAILY, (Reported) Ondansetron Hcl (Zofran), 1 TAB PO Q8H Prednisone (Prednisone), 0 PO DAILY Scheduled PRN Metoclopramide HCl (Reglan), 1 TAB PO Q8H PRN for nausea/vomiting Past Medical History Past Medical History: COPD, *GI/HEPATOBILIARY*, Kidney Stones Past Surgical History: no surgical history Alcohol Use: None Drug Use: none Lives with: Spouse Review of Systems All Other Systems at this time: Reviewed and Negative Constitutional: Denies: fever Physical Exam Vital Signs: Temperature: 98.6, Source: Temporal, Heart Rate: 71, Respiratory Rate: 15, BP: 154/103, Pulse Oximetry: 98, Weight: 71.600 Physical Exam Well-appearing no distress Abdomen soft nontender Skin pink warm dry Awake alert oriented Progress Progress Note Labs independently interpreted myself show no leukocytosis no abnormalities Results/Orders Results/Orders Orders - KAREN BORDEN MD Urinalysis, Cult If Indicated (02/13/25 09:30) Completed Orders - KAREN BORDEN MD Cbc/Diff (02/13/25 09:30) BMP (02/13/25 09:30) Lipase (02/13/25 09:30) CMP (02/13/25 09:30) Methylprednisolone Sod Succ (Solumedrol (02/13/25 09:55) Medications Received in ER Medications (Trade) Dose Ordered Sig/Redd Route PRN Reason Start Time Stop Time Status Last Admin Dose Admin (SoluMEDROL 125mg inj) 125 mg ONCE ONCE IV 02/13/25 09:55 02/13/25 09:56 DC 02/13/25 10:05 125 MG Vital Signs 02/13/25 02/13/25 02/13/25 09:27 10:32 10:34 Temp 98.6 Pulse 71 112 Resp 15 22 B/P (MAP) 154/103 133/82 (99) Pulse Ox 98 Laboratory Tests Test 02/13/25 09:59 White Blood Count 10.5 Red Blood Count 5.08 Hemoglobin 14.9 Hematocrit 44.7 Mean Corpuscular Volume 88.0 Mean Corpuscular Hemoglobin 29.4 Mean Corpuscular Hemoglobin Concent 33.4 Red Cell Distribution Width 14.2 Platelet Count 380 Mean Platelet Volume 7.4 Neutrophils (%) (Auto) 73.5 Lymphocytes (%) (Auto) 17.8 L Monocytes (%) (Auto) 6.8 Eosinophils (%) (Auto) 1.3 Basophils (%) (Auto) 0.6 Neutrophils # (Auto) 7.8 H Lymphocytes # (Auto) 1.9 Monocytes # (Auto) 0.7 Eosinophils # (Auto) 0.1 Basophils # (Auto) 0.1 CBC Comment Sodium Level 141 Potassium Level 3.8 Chloride Level 105 Carbon Dioxide Level 29.8 Anion Gap 6 L Blood Urea Nitrogen 12 Creatinine 0.88 Estimated GFR/1.73 m2 > 90 BUN/Creatinine Ratio 13.6 Glucose Level 124 H Calcium Level 9.0 Total Bilirubin 0.4 Aspartate Amino Transf (AST/SGOT) 23 Alanine Aminotransferase (ALT/SGPT) 19 Alkaline Phosphatase 68 Total Protein 7.5 Albumin 3.7 Globulin 3.8 Albumin/Globulin Ratio 1.0 L Lipase 20 Chemistry Comments Medical Decision Making Additional info obtained from: old records Findings Discharge summary 2019 Crohn's flare Additional Comments Colitis, ulcerative colitis, sepsis Departure Disposition: HOME / SELF CARE / HOMELESS Impression: Primary Impression: Exacerbation of Crohn's disease Qualified Codes: K50.911 - Crohn's disease, unspecified, with rectal bleeding Additional Impression Text 54-year-old presenting with a typical Crohn's flares. He is well-appearing afebrile benign abdomen. He is requesting outpatient management with prednisone which is typical for him. Labs are reassuring. Additional Instructions: Please start taking your prednisone tomorrow morning. Return to the emergency department if you develop fever or worsening pain. 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
[2025-02-13] MEDS ORDERED: PRED10TA23 PO (10:40)
== END 2025-02-13 11:22 | disposition home or self-care (01) ==
LOC: ER 09:24
DX: K50.90 Crohn's disease, unspecified, without complications (principal); J44.9 Chronic obstructive pulmonary disease, unspecified; Z87.440 Personal history of urinary (tract) infections; Z88.6 Allergy status to analgesic agent; Z88.8 Allergy status to other drugs, medicaments and biological substances
CPT/HCPCS: 36415; 80053; 83690; 85025; 96374; 99283; J2919

== ENCOUNTER 2025-06-25 13:42 | Emergency (ER) | payer MEDICARE, MEDICAID ==
[~2025-06-25] VITALS: Ht 180.3 cm; Wt 85.0 kg
[2025-06-25 15:00] LABS: MEAN PLATELET VOLUME 7.7 FL (7.4-10.4); RED CELL DISTRIBUTION WIDTH 13.9 % (11.5-14.5)
[2025-06-25 15:15] LABS: CREATININE 1.08 MG/DL (0.60-1.10); TOTAL CARBON DIOXIDE 28.0 MMOL/L (24-32); eCRCL 85 ML/MIN; eGFR 72 ML/MIN
[2025-06-25 15:22] LABS: LEUKOCYTE ESTERASE ,URINE NEGATIVE (Neg); NITRITES, URINE NEGATIVE (Neg); OCCULT BLOOD,URINE MODERATE (Neg)
[2025-06-25 15:28] LABS: UA COLLECTION TYPE VOIDED
[2025-06-25 15:46] LABS: MUCUS STRANDS FEW /LPF (Neg); SQUAMOUS EPITHELIAL CELL,UR FEW /LPF (FEW)
[2025-06-25] MEDS: metoclopramide 5 mg/ml inj IV ONE (16:08)
[2025-06-25] MEDS: morphine 4 MG/ML inj SYRINge IV ONE (16:11)
--- NOTE | 2025-06-25 16:13 | RADIOLOGY REPORT ---
Indication: Flank pain left more than right Technique: CT axial images of the abdomen and pelvis are obtained without contrast. Coronal and sagittal reformats were obtained. Radiation Dose Information: CTDI volume is 18 mGy. Dose-length product is 905 mGy*cm Comparison: CT CT ABDOMEN PELVIS on DOS: 11/18/24, FINDINGS: There is limited interpretation of the abdomen and pelvis without administration of intravenous contrast. Lung bases demonstrate no pleural effusion. Adrenal glands, spleen, pancreas, liver unremarkable in shape. No CT evidence for cholelithiasis. There is mild left hydroureteronephrosis. No obstructing calculus identified. Nonobstructing right renal calculus measuring 2 mm. The stomach is partially distended. The small bowel loops are normal in caliber. Colonic diverticular disease normal appendix. Moderate volume stool in the colon. Bladder partially distended. No free pelvic fluid. No inguinal lymphadenopathy. No aggressive osseous process. [id number] thoracolumbar degenerative disc disease most pronounced at L4-5. IMPRESSION: Limited evaluation without contrast. Mild left hydroureteronephrosis. No definitive obstructing calculus identified. This could be secondary to recently passed calculus, obstructing ureteral/ bladder etiology, urinary tract infection. Correlate clinically. Nonobstructing right renal calculus measuring 2 mm. Colonic diverticular disease. Other findings as described
[2025-06-25 16:17] VITALS: TEMP 99.1
--- NOTE | 2025-06-25 16:47 | Physician Documentation ---
History of Present Illness ~ Chief Complaint: Flank Pain Stated Complaint: KIDNEY STONES Time Seen by MD: 14:26 OK to notify your PCP?: Yes Primary Medical Doctor: [facility] Mode of Arrival: POV HPI 54-year-old male patient with a history of renal stone came to the emergency room because of flank pain initially in the left side and then also in the right side three days ago and is got better and then today left flank is painful. He is also having some headache. He said he is allergic to ibuprofen. He does not see any gross blood in the urine. No other complaints. Medication Reconciliation Allergies: Coded Allergies: ibuprofen (Unverified Allergy, Unknown, BLEEDING AND VOMITTING, 11/18/24) mesalamine (Unverified Allergy, Unknown, BLEEDING, 11/18/24) Scheduled Balsalazide Disodium (Balsalazide Disodium), 3 CAP PO TID, (Reported) Lactobacillus Rhamnosus (Culturelle), 1 CAP PO BID, (Reported) Multivitamins (Multivitamins), 1 TAB PO DAILY, (Reported) Ondansetron Hcl (Zofran), 1 TAB PO Q8H Scheduled PRN Hydrocodone Bit/Acetaminophen 5/325 MG ([place] 5/325 MG), 1-2 TAB PO Q4HPRN PRN for pain Metoclopramide HCl (Reglan), 1 TAB PO Q8H PRN for nausea/vomiting Past Medical History Past Medical History: COPD, *GI/HEPATOBILIARY*, Kidney Stones Past Surgical History: no surgical history Alcohol Use: None Drug Use: none Lives with: Spouse Review of Systems ROS As stated above in the HPI, otherwise all systems are reviewed and negative. Physical Exam Vital Signs: Temperature: 99.1, Source: Temporal, Heart Rate: 60, Respiratory Rate: 18, BP: 108/81, Pulse Oximetry: 95, Weight: 85.000 Oxygen Flow Rate: 0 Progress Results/Orders Results/Orders Orders - LUISITO GALVEZ MD Ct Abdomen Pelvis (06/25/25 15:41) Completed Orders - LUISITO GALVEZ MD Cbc/Diff (06/25/25 13:56) Lipase (06/25/25 13:56) CMP (06/25/25 13:56) Metoclopramide Inj (Reglan Inj) (06/25/25 15:25) Pantoprazole 40mg Iv (Protonix 40mg Iv) (06/25/25 15:25) Morphine 4mg/Ml Inj. (Morphine Inj.) (06/25/25 15:25) Ua W/Microscopic, Cult If Ind (06/25/25 15:06) Ct Abdomen Pelvis (06/25/25 15:41) Vital Signs 06/25/25 06/25/25 06/25/25 06/25/25 13:54 15:13 15:13 16:11 Temp 99.1 99.1 Pulse 80 70 Resp 18 18 18 B/P (MAP) 137/94 137/78 (97) Pulse Ox 98 96 O2 Flow Rate 0 0 06/25/25 06/25/25 16:17 17:10 Temp 99.1 Pulse 60 61 Resp 18 18 B/P (MAP) 108/81 (90) 108/68 (81) Pulse Ox 95 96 O2 Flow Rate 0 0 Laboratory Tests Test 06/25/25 14:33 06/25/25 15:06 White Blood Count 9.3 Red Blood Count 5.12 Hemoglobin 15.6 Hematocrit 45.2 Mean Corpuscular Volume 88.2 Mean Corpuscular Hemoglobin 30.4 Mean Corpuscular Hemoglobin Concent 34.5 Red Cell Distribution Width 13.9 Platelet Count 350 Mean Platelet Volume 7.7 Neutrophils (%) (Auto) 61.2 Lymphocytes (%) (Auto) 27.4 Monocytes (%) (Auto) 8.1 Eosinophils (%) (Auto) 2.0 Basophils (%) (Auto) 1.3 H Neutrophils # (Auto) 5.7 Lymphocytes # (Auto) 2.6 Monocytes # (Auto) 0.8 Eosinophils # (Auto) 0.2 Basophils # (Auto) 0.1 CBC Comment Sodium Level 141 Potassium Level 3.9 Chloride Level 105 Carbon Dioxide Level 28.0 Anion Gap 8 Blood Urea Nitrogen 19 H Creatinine 1.08 Estimated GFR/1.73 m2 72 BUN/Creatinine Ratio 17.6 Glucose Level 114 H Calcium Level 8.8 Total Bilirubin 0.4 Aspartate Amino Transf (AST/SGOT) 18 Alanine Aminotransferase (ALT/SGPT) 19 Alkaline Phosphatase 60 Total Protein 7.9 Albumin 4.0 Globulin 3.9 Albumin/Globulin Ratio 1.0 L Lipase 24 Chemistry Comments Urine Specimen Description Voided Urine Color Yellow Urine Clarity Clear Urine pH 6.0 Urine Specific [place] 1.025 Urine Protein Negative Urine Glucose (UA) Negative Urine Ketones 15 H Urine Occult Blood Moderate H Urine Nitrite Negative Urine Bilirubin Negative Urine Urobilinogen 0.2 Urine Leukocyte Esterase Negative Urine RBC 3-10 Urine WBC 0-4 Urine Squamous Epithelial Cells Few Urine Bacteria None seen Urine Mucus Few Urine Culture Indicated Not ind Volume Urine Centrifuged 10 ml Urine Comment Medical Decision Making Findings ER Course/Med. Decision Making REVIEW of RECORD(S): Previous medical records here and/or external medical records, such as that provided directly by the patient, by EMS and/or outside medical facilities, if available, were reviewed. COMORBIDITIES history of urinary calculus MDM During the physical examination, the findings suggestive of acute life- threatening condition such as JVD, tracheal deviation, acidotic breathing, noisy stridorous breath sounds, pulses paradoxus, muffled heart sounds, unequal breath sounds, abdominal rigidity and rebound tenderness, focal neurological deficits, cool clammy skin, severe hypotension, severe tachycardia or bradycardia are absent. Patient presenting for flank pain more so in the left side . Vital signs reviewed. Patient is hemodynamically stable and does not meet SIRS criteria. Patient appears nontoxic on exam. Physical examination is unremarkable. CBC and BMP are normal Urine shows some occult blood present. CT of the abdomen and pelvis shows mild hydronephrosis in the left side but could not see any stone. Radiologist impression is recently passed stone. Patient is also very comfortable. Patient does not have identifiable emergent medical condition that warrants inpatient medical care at this time. The patient is deemed safe for discharge with outpatient follow up. TREATMENT/DISPOSITION: The patient's presentation is most consistent with left urinary calculus probably passed Prior to discharge I independently reviewed the patients past medical history, clinical risk factors, comorbidities, and social determinants of health and diagnostic studies. The patient appears to be a safe discharge home with close outpatient PCP follow-up I had extensive discussion with patient regarding management, disposition and follow up. Potential symptom etiology was discussed, and shared decision making occurred. They will return immediately if symptoms worsen, do not improve, or t hey have any further concerns. Prior to discharge all questions were addressed. The patient is aware that the purpose of this visit was to screen for an acute medical emergency requiring emergent stabilization. Chronic and occult conditions, including malignancies, have not been ruled out. If patient is unable to arrange follow-up as stated in the discharge instructions and further discussed with the patient directly, or their symptoms worsen/become more concerning, they are to return to the ER for reassessment immediately. Prior to leaving the department, the patient has a plan for discharge, has decision making capacity, and acknowledges an understanding of the verbal and written discharge instructions. SOCIAL DETERMINANTS: Patient demonstrates no obvious challenges to following up as an outpatient although did consider whether patient had any barriers to access care including homelessness, Food insecurity, Mental health, Substance abuse, Disabilities, Limited access to medical care, Difficulty finding transport, Insurance issues, Refusal of care or testing due to cost concerns. MEDICAL SCREENING: I have discussed with the patient the non-definitive nature of the emergency screening exam, diagnosis and the possibility of a variety of conditions which may present in atypically benign fashion and stressed the importance of close follow-up for definitive diagnosis and treatment. We discussed signs and symptoms that should be watched for which might indicate a more serious or new condition that would benefit from emergency reevaluation and the patient has verbalized understanding to this and my other detailed discharge instructions and promises compliance. I have referred him back to his primary physician of course for a more detailed evaluation and more definitive diagnoses. DISCLAIMER: Inadvertent spelling and grammatical errors are likely due to EMR/dictation software use and do not reflect on the overall quality of patient care. Note that the electronic time recorded on this note does not necessarily reflect the actual time of the patient encounter. Urinary Diff Dx:Considerations: Include: Aortic dissection, Appendicitis, Impaction, Musculoskeletal pain, Pyelonephritis, Urolithiasis, Urinary Obstruction, Urinary retention, UTI Departure Disposition: 01 HOME / SELF CARE / HOMELESS Impression: Primary Impression: Renal colic Condition: Stable Discharge Instructions: Renal Colic Additional Instructions: Thank you for coming to our Emergency Department today. Push fluids. Please ask your nurse or provider if you have questions about your care today and do not leave until all your questions have been answered. Please use any medications given as directed and follow-up with your doctor (or the doctor you were referred to) in the next 1-3 days. Your primary care doctor can help to coordinate outpatient specialty care and provide authorization for specialty referral as needed. If you do not have a primary care doctor you may follow up at a [facility] [facility]. You may also use motrin and tylenol as needed for fever and/or pain unless instructed otherwise by your provider or nurse. Ind ications for more urgent follow-up have been discussed, but you may return to the Emergency Department at ANY time for any worrisome or worsening symptoms. County Facilities: County Facilities: [facility]: [facility] [place] Address:[address] [place] [address] [facility]: [place] Address:[address] [place] [address] [facility]: [facility] Address:[address] [place] [address] [facility] Address:[address] [place] [address] Registration Billing Pharmacy Referrals [facility] Address:[address] [place] [id number] Referrals: NO PRIMARY CARE PROVIDER (PCP) Prescriptions Hydrocodone Bit/Acetaminophen 5/325 MG ([place] 5/325 MG) 5 Mg/325 Mg Tablet 1-2 TAB PO Q4HPRN PRN for pain for 2 Days, #30 TAB Prov: LUISITO GALVEZ MD 06/25/25 Education Educated: Patient Educated regarding: diagnosis, treatment, need for follow up Signature Scribe Signature: None Attestation: My dictation LUISITO GALVEZ MD Jun 25, 2025 16:47
[2025-06-25] MEDS ORDERED: HYDR-3965 PO (16:52)
[2025-06-25 17:10] VITALS: BP 108/68; PULSE 61; RESP 18; O2SAT 96
== END 2025-06-25 17:19 | disposition home or self-care (01) ==
LOC: ER 13:42
DX: N20.0 Calculus of kidney (principal); J44.9 Chronic obstructive pulmonary disease, unspecified; Z87.442 Personal history of urinary calculi; Z88.6 Allergy status to analgesic agent; Z88.8 Allergy status to other drugs, medicaments and biological substances; Z79.899 Other long term (current) drug therapy
CPT/HCPCS: 36415; 74176; 80053; 81001; 83690; 85025; 96374; 96375; 99285; J2270; J2470; J2765